=== PATIENT | female | born 1965 | race Caucasian/White ===

== ENCOUNTER → 2019-06-27 13:23 | Outpatient (CLI) | payer OTHER, SELFPAY ==
--- NOTE | 2019-06-27 | DI.MRI.S_ITS ---
PROCEDURE: MR SHOULDER RT WO CON INDICATIONS: Pain in right shoulder TECHNIQUE: Noncontrast oblique coronal T2 fast spin echo with fat saturation, oblique sagittal T1 spin echo and T2 fast spin echo with fat saturation, axial T1 spin echo and T2 fast spin echo with fat saturation through the shoulder. COMPARISON: None. FINDINGS: Image quality: Motion degraded examination. Rotator cuff: At the junction of the supraspinatus and infraspinatus tendon, there is a partial thickness articular sided tear measuring 5 mm in the AP dimension as seen on sagittal image /. This is probably involving 50% of overall tendon thickness. No complete rupture identified. Additional low-grade bursal surface fraying of the supraspinatus and infraspinatus tendons is noted. Teres minor appears intact. Subscapularis tendinopathy and mild thickening. No rotator cuff muscle atrophy Bones and bursae: No bone marrow contusions or fractures. Moderate acromioclavicular joint degeneration. Mild glenohumeral joint degeneration Acromion demonstrates conventional anatomy, without an os acromiale. Moderate subacromial-subdeltoid bursitis. Capsule and soft tissues: Labrum: Not well evaluated due to motion artifact. Age-appropriate ill-defined fraying of the superior, and posterosuperior labrum. Long head of the biceps tendon intact. The rotator interval appears normal, without fibrosis. Coracohumeral ligament intact. IMPRESSION: Partial thickness articular sided tear at the junction of the supraspinatus and infraspinatus tendons. Supraspinatus and infraspinatus low-grade bursal surface fraying. Subscapularis tendinopathy and mild thickening. Moderate subacromial-subdeltoid bursitis Labrum not well-seen due to motion artifact. Probable age-appropriate ill-defined degenerative fraying versus chronic remote tear of the posterosuperior labrum Dictated by: Lars Roldan M.D. on 06/29/2019 at 10:02 Approved by: Lars Roldan M.D. on 06/29/2019 at 10:19
== END ==
PROVIDERS: PCP Orthopaedic Surgery; Referring Provider Orthopaedic Surgery; Visit Provider Orthopaedic Surgery
DX: M25.511 Pain in right shoulder (principal); M75.111 Incomplete rotator cuff tear or rupture of right shoulder, not specified as traumatic; M75.51 Bursitis of right shoulder
CPT/HCPCS: 73221

== ENCOUNTER → 2020-03-09 10:46 | Outpatient (CLI) | payer OTHER, SELFPAY ==
--- NOTE | 2020-03-09 | DI.US.S_ITS ---
PROCEDURE: US RENAL COMPLETE INDICATIONS: Calculus of ureter TECHNIQUE: Real-time scanning was performed of the kidneys and bladder, with image documentation. COMPARISON: [facility], CR, XR ABDOMEN 1 VIEW, 01/26/2020, 10:58. [facility], CT, CT ABDOMEN PELVIS WITH CONTRAST, 01/12/2020, 23:43. FINDINGS: Kidneys: Kidneys are normal in size. Right kidney measures 11 cm long; left kidney measures 1.5 cm long. Right renal cortical thickness is 11.5 cm; left renal cortical thickness is 1.4 cm. Renal cortical echotexture is normal. No hydronephrosis or nephrolithiasis. No suspicious solid mass lesions. Bladder: Pre-void bladder volume is 539 mL. Post-void residual is 18 mL. Pre-void images demonstrate no intraluminal masses or stones. On pre-void images, both ureteral jets are noted with color Doppler interrogation. (Of note, ureteral jets may not be detectable in up to 25% of cases due to insufficient differences in specific gravity between ureteral and bladder urine). Miscellaneous: No free pelvic fluid. IMPRESSION: 1. No hydronephrosis. 2. Post void residual 18 cc. Dictated by: Ruperto hCaudhari M.D. on 03/09/2020 at 13:20 Approved by: Ruperto Chaudhari M.D. on 03/09/2020 at 13:24
== END ==
PROVIDERS: PCP Physician Assistant; Referring Provider Urology; Visit Provider Urology
DX: N20.1 Calculus of ureter (principal)
CPT/HCPCS: 76770